=== PATIENT | female | born 1960 | race Hispanic/Latino ===

== ENCOUNTER 2023-12-01 00:56 | Observation (INO) | payer BC ==
[2023-12-01] MEDS ORDERED: Ondansetron PF 4 MG/2 ML Vial ONE (03:03)
[2023-12-01] MEDS ORDERED: Pantoprazole 40 MG VIAL ONE (03:03)
[2023-12-01 03:27] LABS: INR-International Normal Ratio 1.1; Prothrombin Time 14.1 sec (12.0-14.7)
[2023-12-01 03:28] LABS: PTT 31.4 sec (22.9-36.1)
[2023-12-01 03:46] LABS: #Basophils 0.03 10x3/uL (0.0-0.2); %Basophils 0.5 % (0.0-1.0); %Eosinophils 0.5 % (0.0-10.0); %Lymphocytes 29.2 % (21.0-51.0); %Monocytes 8.4 % (0.0-10.0); %Neutrophils 60.9 % (42.0-75.0); Hematocrit 34.8 % (36.0-47.0); Hemoglobin 12.1 g/dL (12.0-16.0); Mean Corpuscular HGB CONC 34.8 g/dL (32.0-36.0); Mean Corpuscular Hemoglobin 32.1 pg (27.0-31.0); Mean Corpuscular Volume 92.3 fL (78.0-98.0); Mean Platelet Volume 10.9 fL (7.4-10.4); Platelet Count 185 10x3/uL (130-400); RBC Distribution Width 12.5 % (11.5-14.5); Red Blood Cell (RBC) Count 3.77 mill/uL (4.20-5.40)
[2023-12-01 04:11] LABS: ALT (SGPT) 21 U/L (8-55); AST (SGOT) 21 U/L (5-34); Albumin 3.6 g/dL (3.4-4.8); Alkaline Phosphatase 70 U/L (40-110); Anion Gap 15 mmol/L (10-20); BUN (Urea Nitrogen) 17 mg/dL (9.8-20.1); Bilirubin, Total 0.7 mg/dL (0.2-1.2); Calc. Creatinine Clearance 0 mL/min (70-130); Calcium 8.7 mg/dL (7.8-10.44); Carbon Dioxide 21 mmol/L (23-31); Chloride 105 mmol/L (98-107); Estimated GFR 92; Globulin 2.9 g/dL (2.4-3.5); Glucose 169 mg/dL (80-115); Lipase 15 U/L (8-78); Magnesium 1.9 mg/dL (1.6-2.6); Potassium 3.8 mmol/L (3.5-5.1); Protein, Total 6.5 g/dL (5.8-8.1); Sodium 137 mmol/L (136-145)
[2023-12-01] MEDS ORDERED: Ondansetron PF 4 MG/2 ML Vial IVP PRN (06:30)
[2023-12-01 08:55] VITALS: BMI 38.5
[2023-12-01] MEDS: Lactated Ringer's 1,000 ML IV SCH (09:15)
[2023-12-01] MEDS: Acetaminophen 325 MG TAB PO SCH (09:16)
[2023-12-01 09:44] LABS: Hemoglobin A1c 5.7 % (4.0-6.0)
[2023-12-01 09:52] LABS: Iron 67 ug/dL (50-170); Iron Binding Capacity, Total 226 mcg/dL (265-497)
[2023-12-01 14:07] LABS: Hematocrit 26.2 % (36.0-47.0); Hemoglobin 8.8 g/dL (12.0-16.0)
[2023-12-01] MEDS ORDERED: Ferrous Sulfate 325 MG TAB PO SCH (15:00)
[2023-12-01] MEDS: GoLYTELY 4,000 ml Bottle PO SCH (16:50)
[2023-12-01] MEDS: traMADol HCl 50 MG TAB PO SCH (23:19)
[2023-12-02 07:04] LABS: #Basophils 0.03 10x3/uL (0.0-0.2); %Basophils 0.6 % (0.0-1.0); %Eosinophils 1.7 % (0.0-10.0); %Lymphocytes 46.8 % (21.0-51.0); %Monocytes 9.6 % (0.0-10.0); %Neutrophils 39.8 % (42.0-75.0); Hematocrit 23.9 % (36.0-47.0); Mean Corpuscular HGB CONC 33.5 g/dL (32.0-36.0); Mean Corpuscular Hemoglobin 32.3 pg (27.0-31.0); Mean Corpuscular Volume 96.4 fL (78.0-98.0); Mean Platelet Volume 11.1 fL (7.4-10.4); Platelet Count 138 10x3/uL (130-400); RBC Distribution Width 12.9 % (11.5-14.5); Red Blood Cell (RBC) Count 2.48 mill/uL (4.20-5.40)
[2023-12-02 07:18] LABS: Anion Gap 11 mmol/L (10-20); BUN (Urea Nitrogen) 12 mg/dL (9.8-20.1); Calc. Creatinine Clearance 119 mL/min (70-130); Calcium 8.1 mg/dL (7.8-10.44); Carbon Dioxide 28 mmol/L (23-31); Chloride 107 mmol/L (98-107); Estimated GFR 98; Glucose 111 mg/dL (80-115); Potassium 3.4 mmol/L (3.5-5.1); Sodium 143 mmol/L (136-145)
[2023-12-02 11:16] LABS: Hematocrit 24.6 % (36.0-47.0); Hemoglobin 8.2 g/dL (12.0-16.0)
[2023-12-02] MEDS ORDERED: PROPOFOL 20 ML ONE ×3 (12:37→13:35)
[2023-12-02] MEDS ORDERED: Lidocaine 2% PF 5 ML VIAL ONE (13:14)
[2023-12-02 15:46] LABS: Hematocrit 23.7 % (36.0-47.0); Hemoglobin 8.1 g/dL (12.0-16.0)
[2023-12-03 10:23] LABS: #Basophils Less than 0.03 10x3/uL (0.0-0.2); %Basophils 0.5 % (0.0-1.0); %Eosinophils 0.7 % (0.0-10.0); %Lymphocytes 37.7 % (21.0-51.0); %Monocytes 7.6 % (0.0-10.0); Hematocrit 25.1 % (36.0-47.0); Hemoglobin 8.5 g/dL (12.0-16.0); Mean Corpuscular HGB CONC 33.9 g/dL (32.0-36.0); Mean Corpuscular Hemoglobin 33.2 pg (27.0-31.0); Mean Platelet Volume 11.2 fL (7.4-10.4); Platelet Count 151 10x3/uL (130-400); RBC Distribution Width 12.8 % (11.5-14.5); Red Blood Cell (RBC) Count 2.56 mill/uL (4.20-5.40)
[2023-12-03 13:30] VITALS: BP 127/73; TEMP 98.1
== END 2023-12-03 17:20 | disposition home or self-care (01) ==
LOC: ERS 00:56 → SURG A 06:16
PROVIDERS: ADMIT Internal Medicine; ATTEND Internal Medicine
PROC: 0DJD8ZZ Inspection of Lower Intestinal Tract, Via Natural or Artificial Opening Endoscopic (ICD-10-PCS; principal; 2023-12-03)
DX: K29.50 Unspecified chronic gastritis without bleeding (principal); B96.81 Helicobacter pylori [H. pylori] as the cause of diseases classified elsewhere; D62 Acute posthemorrhagic anemia; K44.9 Diaphragmatic hernia without obstruction or gangrene; K57.30 Diverticulosis of large intestine without perforation or abscess without bleeding; I10 Essential (primary) hypertension; E66.9 Obesity, unspecified; K76.0 Fatty (change of) liver, not elsewhere classified; R73.09 Other abnormal glucose; Z90.710 Acquired absence of both cervix and uterus; Z68.38 Body mass index [BMI] 38.0-38.9, adult; Z79.899 Other long term (current) drug therapy
CPT/HCPCS: 36415; 74177; 80048; 80053; 82274; 82728; 83036; 83540; 83550; 83690; 83735; 85025; 85610; 85730; 86850; 86900; 86901; 88305; 88342; 96374; 96375; C9113; G0378; J2001; J2405; J2704; J7120